=== PATIENT | male | born 1995 | race Caucasian/White ===

== ENCOUNTER → 2017-08-26 | Outpatient (CLI) | payer OTHER ==
[~2017-08-26] MED LIST: ADDERALL15 MG PO
== END ==
LOC: RAD 15:34
DX: M25.562 Pain in left knee (principal); M25.462 Effusion, left knee

== ENCOUNTER → 2017-09-03 | Outpatient (CLI) | payer OTHER | LOC: US 10:14 | DX: R19.09 Other intra-abdominal and pelvic swelling, mass and lump (principal) ==

== ENCOUNTER 2020-06-14 19:38 | Emergency (ER) | payer OTHER ==
[~2020-06-14] VITALS: Ht 175.2 cm; Wt 82.6 kg
[2020-06-14 20:46] LABS: ALBUMIN 4.3 gm/dl (3.1-4.5); ALKALINE PHOSPHATASE 99 U/L (45-117); BUN 13 mg/dl (7-24); CHLORIDE 107 mmol/L (98-107); CREATININE 1.13 mg/dL (0.70-1.30); POTASSIUM 3.9 mmol/L (3.5-5.1); SGOT/AST 16 IU/L (3-35); SODIUM 138 mmol/L (136-145); TOTAL PROTEIN 8.5 gm/dL (6.4-8.2)
[2020-06-14 20:51] LABS: SGPT/ALT 30 U/L (12-78)
[2020-06-14 20:58] LABS: BASO % 0.4 % (0.0-1.0); EOS % 0.4 % (1.0-4.0); HEMATOCRIT 48.2 % (42.0-52.0); LYMPH # 1.1 10*3/uL (1.3-4.4); LYMPH % 15.2 % (27.0-41.0); MEAN CELL VOLUME 84.6 fl (80.0-94.0); MEAN CORPUSCULAR HGB 29.1 pg (27.0-31.0); MEAN CORPUSCULAR HGB CONC 34.4 g/dl (33.0-37.0); MEAN PLATELET VOLUME 12.8 fl (9.6-12.3); MONO # 0.6 10*3/uL (0.1-1.0); MONO % 8.2 % (3.0-9.0); NEUT # 5.4 10*3/uL (2.3-7.9); NEUT % 75.7 % (47.0-73.0); PLATELET COUNT AUTOMATED 178 10*3/uL (130-400); RED CELL DISTRI WIDTH 12.3 % (0-14.5); WHITE BLOOD COUNT 7.2 10*3/uL (4.8-10.8)
== END 2020-06-14 22:47 | disposition home or self-care (01) ==
LOC: ED 19:38
PROVIDERS: Student in an Organized Health Care Education/Training Program
DX: R55 Syncope and collapse (principal); F90.9 Attention-deficit hyperactivity disorder, unspecified type

== ENCOUNTER → 2025-02-28 | Outpatient (CLI) | payer OTHER ==
[2025-03-01 08:08] LABS: MEASLES (RUBEOLA) Abs, IgG >300.0 AU/mL (Immune >16.4); MUMPS ANTIBODIES, IGG 28.5 AU/mL (Immune >10.9)
== END | disposition home or self-care (01) ==
LOC: LAB 02-22 11:55
PROVIDERS: ATTEND Internal Medicine
DX: F90.0 Attention-deficit hyperactivity disorder, predominantly inattentive type (principal)